=== PATIENT | male | born 1940 | race Two or more races ===

== ENCOUNTER → 2017-01-23 | Outpatient (CLI) | payer MEDICARE, BC | LOC: RAD 10:13 | PROVIDERS: ATTEND Internal Medicine Interventional Cardiology | DX: M25.851 Other specified joint disorders, right hip (principal); M89.8X8 Other specified disorders of bone, other site | CPT/HCPCS: 73502; 73552 ==

== ENCOUNTER 2017-04-24 09:30 | Outpatient (CLI) | payer MEDICARE, BC ==
[2017-04-24 10:39] LABS: BASOPHILS % (AUTO) 0.4 % (0.0-2.0); EOSINOPHILS # (AUTO) 0.2 /CMM (0.0-0.7); EOSINOPHILS % (AUTO) 3.1 % (0.0-6.0); HEMATOCRIT 41 % (39-51); HEMOGLOBIN 13.9 g/dL (13.5-17.5); LYMPHOCYTES # (AUTO) 1.2 /CMM (0.8-4.8); LYMPHOCYTES % (AUTO) 15.6 % (20.0-44.0); MEAN CORPUSCULAR HEMOGLOBIN 30 PG (26.0-33.0); MEAN CORPUSCULAR HGB CONC 34 g/dl (31.0-36.0); MEAN CORPUSCULAR VOLUME 89 fL (80-96); MONOCYTES # (AUTO) 0.6 /CMM (0.1-1.30); MONOCYTES % (AUTO) 8.2 % (2.0-12.0); NEUTROPHILS # (AUTO) 5.5 /CMM (1.8-8.9); NEUTROPHILS % (AUTO) 72.7 % (43.0-81.0); PLATELET COUNT (AUTO) 100 /CMM (150-450); RDW COEFFICIENT OF VARIATION 14.7 (11.5-15.0); RED BLOOD CELL COUNT(AUTO) 4.61 MIL/uL (4.5-6.0); WHITE BLOOD COUNT (AUTO) 7.6 K/uL (4.3-11.0)
[2017-04-24 10:53] LABS: ALANINE AMINOTRANSFERASE 32 U/L (12-78); ALBUMIN 4.1 g/dL (3.4-5.0); ALKALINE PHOSPHATASE 81 U/L (46-116); ASPARTATE AMINOTRANSFERASE 27 U/L (15-37); BILIRUBIN,TOTAL 0.6 mg/dL (0.2-1.0); CALCIUM, SERUM 9.4 mg/dL (8.5-10.1); CARBON DIOXIDE 27 mmol/L (21-32); CHLORIDE 104 mmol/L (98-107); CREATININE 1.3 mg/dL (0.6-1.3); GLUCOSE 105 mg/dL (74-106); POTASSIUM 4.1 mmol/L (3.5-5.1); SODIUM SERUM 142 mmol/L (136-145); TOTAL PROTEIN, SERUM 8.2 g/dL (6.4-8.2); UREA NITROGEN, BLOOD 25 mg/dL (7-18)
[2017-04-24 11:09] LABS: CHOLESTEROL 107 mg/dL (<200); HDL CHOLESTEROL 39 mg/dL (40-60); LDL 65 mg/dL (0-99); THYROID STIMULATING HORMONE 1.614 uIU/mL (0.358-3.74); TRIGLYCERIDES 94 mg/dL (30-150)
== END 2017-04-24 23:59 | disposition home or self-care (01) ==
LOC: LAB 09:30
PROVIDERS: ATTEND Internal Medicine Interventional Cardiology
DX: I50.9 Heart failure, unspecified (principal); E78.5 Hyperlipidemia, unspecified; E11.9 Type 2 diabetes mellitus without complications; R53.83 Other fatigue
CPT/HCPCS: 36415; 80053-TC; 80061-TC; 84443-TC; 85025-TC

== ENCOUNTER 2017-07-31 08:51 | Outpatient (CLI) | payer MEDICARE, BC | END 2017-07-31 23:59 | disposition home or self-care (01) | LOC: CARD 08:51 | PROVIDERS: ATTEND Internal Medicine Interventional Cardiology | DX: M79.604 Pain in right leg (principal); I73.9 Peripheral vascular disease, unspecified; M79.605 Pain in left leg; M79.89 Other specified soft tissue disorders | CPT/HCPCS: 93970-TC ==

== ENCOUNTER 2017-11-05 09:12 | Outpatient (CLI) | payer MEDICARE, BC | END 2017-11-05 23:59 | disposition home or self-care (01) | LOC: CARD 09:12 | PROVIDERS: ATTEND Internal Medicine Interventional Cardiology | DX: R09.89 Other specified symptoms and signs involving the circulatory and respiratory systems (principal); R42 Dizziness and giddiness | CPT/HCPCS: 93880-TC ==

== ENCOUNTER 2018-05-12 09:23 | Outpatient (CLI) | payer MEDICARE, BC ==
[2018-05-12 10:33] LABS: BASOPHILS # (AUTO) 0.1 /CMM (0.0-0.2); BASOPHILS % (AUTO) 0.9 % (0.0-2.0); EOSINOPHILS % (AUTO) 4.4 % (0.0-6.0); HEMATOCRIT 46 % (39-51); HEMOGLOBIN 15.8 g/dL (13.5-17.5); LYMPHOCYTES # (AUTO) 1.3 /CMM (0.8-4.8); LYMPHOCYTES % (AUTO) 21.6 % (20.0-44.0); MEAN CORPUSCULAR HGB CONC 35 g/dl (31.0-36.0); MEAN CORPUSCULAR VOLUME 91 fL (80-96); MONOCYTES # (AUTO) 0.7 /CMM (0.1-1.30); MONOCYTES % (AUTO) 12.1 % (2.0-12.0); NEUTROPHILS # (AUTO) 3.8 /CMM (1.8-8.9); PLATELET COUNT (AUTO) 74 /CMM (150-450); RED BLOOD CELL COUNT(AUTO) 5.06 MIL/uL (4.5-6.0); WHITE BLOOD COUNT (AUTO) 6.2 K/uL (4.3-11.0)
[2018-05-12 10:57] LABS: LYMPHOCYTES % (MANUAL) 23 % (16-48); MONOCYTES % (MANUAL) 13 % (0-11.0); NEUTROPHILS % (MANUAL) 57 (42-76)
[2018-05-12 10:58] LABS: EOSINOPHILS % (MANUAL) 7 % (0-4)
[2018-05-12 11:01] LABS: ALANINE AMINOTRANSFERASE 43 U/L (12-78); ALBUMIN 4.2 g/dL (3.4-5.0); ALKALINE PHOSPHATASE 72 U/L (46-116); ASPARTATE AMINOTRANSFERASE 33 U/L (15-37); BILIRUBIN,TOTAL 0.6 mg/dL (0.2-1.0); CALCIUM, SERUM 9.4 mg/dL (8.5-10.1); CARBON DIOXIDE 23 mmol/L (21-32); CHLORIDE 105 mmol/L (98-107); CREATININE 1.5 mg/dL (0.6-1.3); GLUCOSE 105 mg/dL (74-106); POTASSIUM 4.6 mmol/L (3.5-5.1); SODIUM SERUM 138 mmol/L (136-145); TOTAL PROTEIN, SERUM 7.7 g/dL (6.4-8.2); UREA NITROGEN, BLOOD 23 mg/dL (7-18)
[2018-05-12 11:03] LABS: CHOLESTEROL 111 mg/dL (<200); HDL CHOLESTEROL 36 mg/dL (40-60); LDL 62 mg/dL (0-99); THYROID STIMULATING HORMONE 2.072 uIU/mL (0.358-3.74); TRIGLYCERIDES 139 mg/dL (30-150)
== END 2018-05-12 23:59 | disposition home or self-care (01) ==
LOC: LAB 09:23
PROVIDERS: ATTEND Internal Medicine Interventional Cardiology
DX: I10 Essential (primary) hypertension (principal); E11.9 Type 2 diabetes mellitus without complications; E78.5 Hyperlipidemia, unspecified; I25.10 Atherosclerotic heart disease of native coronary artery without angina pectoris; R53.83 Other fatigue
CPT/HCPCS: 36415; 80053-TC; 80061-TC; 84443-TC; 85025-TC

== ENCOUNTER 2018-12-01 08:25 | Outpatient (CLI) | payer MEDICARE, BC | END 2018-12-01 23:59 | disposition home or self-care (01) | LOC: CARD 08:25 | PROVIDERS: ATTEND Internal Medicine Interventional Cardiology | DX: I65.21 Occlusion and stenosis of right carotid artery (principal) | CPT/HCPCS: 93880-TC ==

== ENCOUNTER 2018-12-22 08:11 | Outpatient (CLI) | payer MEDICARE, BC ==
[2018-12-22 09:10] LABS: BASOPHILS # (AUTO) 0.1 /CMM (0.0-0.2); BASOPHILS % (AUTO) 0.9 % (0.0-2.0); HEMATOCRIT 44 % (39-51); HEMOGLOBIN 14.9 g/dL (13.5-17.5); LYMPHOCYTES # (AUTO) 1.4 /CMM (0.8-4.8); LYMPHOCYTES % (AUTO) 16.9 % (20.0-44.0); MEAN CORPUSCULAR HGB CONC 34 g/dl (31.0-36.0); MEAN CORPUSCULAR VOLUME 92 fL (80-96); MONOCYTES % (AUTO) 11.7 % (2.0-12.0); NEUTROPHILS # (AUTO) 5.4 /CMM (1.8-8.9); NEUTROPHILS % (AUTO) 66.5 % (43.0-81.0); PLATELET COUNT (AUTO) 114 /CMM (150-450); RED BLOOD CELL COUNT(AUTO) 4.79 MIL/uL (4.5-6.0); WHITE BLOOD COUNT (AUTO) 8.1 K/uL (4.3-11.0)
[2018-12-22 09:30] LABS: ALANINE AMINOTRANSFERASE 34 U/L (12-78); ALBUMIN 4.1 g/dL (3.4-5.0); ALKALINE PHOSPHATASE 70 U/L (46-116); ASPARTATE AMINOTRANSFERASE 23 U/L (15-37); BILIRUBIN,TOTAL 0.4 mg/dL (0.2-1.0); CALCIUM, SERUM 9.6 mg/dL (8.5-10.1); CARBON DIOXIDE 26 mmol/L (21-32); CHLORIDE 103 mmol/L (98-107); CREATININE 1.4 mg/dL (0.6-1.3); GLUCOSE 120 mg/dL (74-106); POTASSIUM 4.1 mmol/L (3.5-5.1); SODIUM SERUM 141 mmol/L (136-145); TOTAL PROTEIN, SERUM 8.1 g/dL (6.4-8.2); UREA NITROGEN, BLOOD 27 mg/dL (7-18)
[2018-12-22 09:36] LABS: CHOLESTEROL 129 mg/dL (<200); HDL CHOLESTEROL 37 mg/dL (40-60); LDL 69 mg/dL (0-99); THYROID STIMULATING HORMONE 1.954 uIU/mL (0.358-3.74); TRIGLYCERIDES 146 mg/dL (30-150)
== END 2018-12-22 23:59 | disposition home or self-care (01) ==
LOC: CARD 08:11
PROVIDERS: ATTEND Internal Medicine Interventional Cardiology
DX: I65.21 Occlusion and stenosis of right carotid artery (principal); E78.5 Hyperlipidemia, unspecified; I10 Essential (primary) hypertension; R53.83 Other fatigue
CPT/HCPCS: 36415; 80053-TC; 80061-TC; 84443-TC; 85025-TC; 93880-TC